=== PATIENT | male | born 1975 | race Native Hawaiian/Other Pacific Islander ===

== ENCOUNTER 2016-08-30 01:11 | Emergency (ER) | payer OTHER ==
[~2016-08-30] VITALS: Ht 172.7 cm; Wt 91.2 kg
[~2016-08-30 01:11] MED LIST: LEVEMIR FL100 UNIT/M SC; LISI10TA11 PO; MELATONIN3 M1 PO; METF500T PO
[2016-08-30] MEDS ORDERED: TRAZ50TA36 PO (01:45)
[2016-08-30] MEDS ORDERED: GABA100C2 PO (01:45)
[2016-08-30 01:52] LABS: PLATELET COUNT 200 K/uL (142-355)
[2016-08-30 02:01] LABS: POTASSIUM 3.6 mmol/L (3.6-5.2); SODIUM 135 mmol/L (136-145)
[2016-08-30 02:21] LABS: PARTIAL THROMBOPLASTIN TIME 20.7 SECONDS (24.5-33.6)
[2016-08-30 02:40] VITALS: BP 113/60; TEMP 98.9
== END 2016-08-30 02:43 | disposition home or self-care (01) ==
LOC: ED 01:11
DX: R07.89 Other chest pain (principal); E11.65 Type 2 diabetes mellitus with hyperglycemia; R00.0 Tachycardia, unspecified; I44.4 Left anterior fascicular block
CPT/HCPCS: 36415; 80053; 80307; 81000; 82550; 83036; 84484; 85027; 85610; 85730; 86318; 93005; 99283; G0479

== ENCOUNTER 2016-09-01 18:10 | Inpatient (IN) | payer OTHER ==
[~2016-09-01] VITALS: Ht 172.7 cm; Wt 89.6 kg
[~2016-09-01 18:10] MED LIST changes: +GABA100C2 PO; +TRAZ50TA36 PO
[2016-09-01 18:30] VITALS: BP 133/89; TEMP 98.8
[2016-09-01 20:37] LABS: PLATELET COUNT 121 K/uL (142-355)
[2016-09-01 20:42] LABS: POTASSIUM 3.9 mmol/L (3.6-5.2); SODIUM 124 mmol/L (136-145)
[2016-09-02 02:37] VITALS: BP 117/76; TEMP 98.4; Ht 172.7 cm; Wt 89.6 kg
[2016-09-02 04:00] VITALS: BP 115/78; TEMP 98.3
[2016-09-02 05:38] LABS: PLATELET COUNT 111 K/uL (142-355)
[2016-09-02 05:55] LABS: POTASSIUM 3.7 mmol/L (3.6-5.2); SODIUM 126 mmol/L (136-145)
[2016-09-02 08:00] VITALS: BP 95/58; TEMP 98.7
[2016-09-02 12:00] VITALS: BP 135/92; TEMP 98.5
[2016-09-02 16:00] VITALS: BP 109/69; TEMP 98
[2016-09-02 20:19] VITALS: BP 99/64; TEMP 98.1
[2016-09-03] VITALS: BP 94/65; TEMP 97.6
[2016-09-03 04:00] VITALS: BP 97/72; TEMP 98
[2016-09-03 06:40] LABS: PLATELET COUNT 123 K/uL (142-355)
[2016-09-03 06:57] LABS: POTASSIUM 3.8 mmol/L (3.6-5.2); SODIUM 135 mmol/L (136-145)
[2016-09-03 08:00] VITALS: BP 105/69; TEMP 97.8
[2016-09-03 12:00] VITALS: BP 123/63; TEMP 97.8
[2016-09-03 16:00] VITALS: BP 143/93; TEMP 98
[2016-09-03 20:00] VITALS: BP 144/93; TEMP 98.4
[2016-09-04] VITALS: BP 114/75; TEMP 97.3
[2016-09-04 04:00] VITALS: BP 117/78; TEMP 98.2
[2016-09-04 08:00] VITALS: BP 132/81; TEMP 98.1
[2016-09-04 12:00] VITALS: BP 143/93; TEMP 98.2
[2016-09-04 16:00] VITALS: BP 139/84; TEMP 98.1
[2016-09-04 20:00] VITALS: BP 148/87; TEMP 98.4
[2016-09-05] VITALS: BP 116/71; TEMP 98
[2016-09-05 04:00] VITALS: BP 124/80; TEMP 98.1
[2016-09-05 08:00] VITALS: BP 144/87; TEMP 97.8
[2016-09-05 09:08] LABS: PLATELET COUNT 181 K/uL (142-355)
[2016-09-05 10:16] LABS: POTASSIUM 3.7 mmol/L (3.6-5.2); SODIUM 135 mmol/L (136-145)
[2016-09-05 11:31] VITALS: BP 140/84; TEMP 97.8
[2016-09-05 16:00] VITALS: BP 142/85; TEMP 98
[2016-09-05 20:00] VITALS: BP 145/83; TEMP 98
[2016-09-06] VITALS: BP 149/90; TEMP 97.4
[2016-09-06 02:23] LABS: PLATELET COUNT 202 K/uL (142-355)
[2016-09-06 02:44] LABS: POTASSIUM 3.4 mmol/L (3.6-5.2); SODIUM 138 mmol/L (136-145)
[2016-09-06 04:00] VITALS: BP 137/77; TEMP 97.4
[2016-09-06 08:00] VITALS: BP 177/99; TEMP 98.3
[2016-09-06 12:00] VITALS: BP 144/79; TEMP 98.1
[2016-09-06 16:00] VITALS: BP 161/89; TEMP 98.3
[2016-09-06 20:00] VITALS: BP 155/86; TEMP 99.2
[2016-09-07 00:17] VITALS: BP 147/82; TEMP 98.8
[2016-09-07 04:00] VITALS: BP 145/81; TEMP 98.9
[2016-09-07 07:51] VITALS: BP 183/67; TEMP 98.5
[2016-09-07 12:00] VITALS: BP 165/95; TEMP 98.7
[2016-09-07 16:00] VITALS: BP 163/89; TEMP 98.4
== END 2016-09-07 18:40 | disposition home or self-care (01) | DRG 623 ==
LOC: ED 18:10 → MED/SURG 09-02 00:45
PROVIDERS: Emergency Medicine; ADMIT Emergency Medicine
PROC: 0HBMXZZ Excision of Right Foot Skin, External Approach (ICD-10-PCS; principal; 2016-09-02)
PROC: 02HV33Z Insertion of Infusion Device into Superior Vena Cava, Percutaneous Approach (ICD-10-PCS; 2016-09-07)
DX: E11.621 Type 2 diabetes mellitus with foot ulcer (principal); E87.1 Hypo-osmolality and hyponatremia; E11.65 Type 2 diabetes mellitus with hyperglycemia; Z79.4 Long term (current) use of insulin; R31.9 Hematuria, unspecified; R10.84 Generalized abdominal pain; R11.2 Nausea with vomiting, unspecified; L08.89 Other specified local infections of the skin and subcutaneous tissue; B95.62 Methicillin resistant Staphylococcus aureus infection as the cause of diseases classified elsewhere; B95.1 Streptococcus, group B, as the cause of diseases classified elsewhere; R06.09 Other forms of dyspnea
CPT/HCPCS: 36415; 36571; 80053; 80202; 80307; 81000; 82150; 82550; 82805; 82948; 83036; 83690; 83735; 84484; 85007; 85027; 85379; 85610; 85651; 85730; 86140; 86318; 87070; 87077; 87086; 87088; 87185; 87186; 87205; 93005; 94760; 96361; 96365; 96366; 96367; 96372; 96374; 96375; 99283; 99284; C1751; G0479; J1200; J1644; J1650; J1815; J1885; J1956; J2270; J2360; J2405; J3370; Q9963

== ENCOUNTER 2016-09-08 20:45 | Outpatient (CLI) | payer OTHER | END 2016-09-08 23:00 | disposition home or self-care (01) | LOC: INF 20:45 | DX: L08.89 Other specified local infections of the skin and subcutaneous tissue (principal); B95.7 Other staphylococcus as the cause of diseases classified elsewhere | CPT/HCPCS: 96365; 96375; J1642; J1956 ==

== ENCOUNTER 2016-09-09 19:35 | Outpatient (CLI) | payer OTHER | END 2016-09-09 21:31 | disposition home or self-care (01) | LOC: INF 19:35 | DX: L08.89 Other specified local infections of the skin and subcutaneous tissue (principal); B95.7 Other staphylococcus as the cause of diseases classified elsewhere | CPT/HCPCS: 96365; 96366; 96375; J1642 ==

== ENCOUNTER 2016-09-10 17:03 | Outpatient (CLI) | payer OTHER | END 2016-09-10 19:00 | disposition home or self-care (01) | LOC: INF 17:03 | DX: L08.89 Other specified local infections of the skin and subcutaneous tissue (principal); B95.7 Other staphylococcus as the cause of diseases classified elsewhere | CPT/HCPCS: 96365; 96366; 96375; J1956 ==

== ENCOUNTER → 2016-09-12 18:59 | Outpatient (CLI) | payer OTHER | END | disposition home or self-care (01) | LOC: INF 18:00 | DX: L08.89 Other specified local infections of the skin and subcutaneous tissue (principal); B95.7 Other staphylococcus as the cause of diseases classified elsewhere | CPT/HCPCS: 96365; 96366; J1956 ==

== ENCOUNTER 2016-09-13 19:20 | Outpatient (CLI) | payer OTHER | END 2016-09-13 21:59 | disposition home or self-care (01) | LOC: INF 19:20 | DX: L08.89 Other specified local infections of the skin and subcutaneous tissue (principal) | CPT/HCPCS: 96365; 96366; 96375; J1642; J1956 ==

== ENCOUNTER 2016-09-14 18:36 | Outpatient (CLI) | payer OTHER | END 2016-09-14 19:09 | disposition home or self-care (01) | LOC: INF 18:36 | DX: L08.89 Other specified local infections of the skin and subcutaneous tissue (principal) | CPT/HCPCS: 96365; 96366; J1956 ==

== ENCOUNTER 2016-09-15 19:42 | Outpatient (CLI) | payer OTHER ==
[2016-09-15 20:59] LABS: PLATELET COUNT 335 K/uL (142-355)
[2016-09-15 21:11] LABS: POTASSIUM 4.1 mmol/L (3.6-5.2); SODIUM 131 mmol/L (136-145)
== END 2016-09-15 22:35 ==
LOC: INF 19:42
PROVIDERS: Emergency Medicine
DX: L08.89 Other specified local infections of the skin and subcutaneous tissue (principal); E11.621 Type 2 diabetes mellitus with foot ulcer
CPT/HCPCS: 36591; 80048; 85027; 96365; 96366; J1956

== ENCOUNTER 2016-09-21 07:50 | Outpatient (CLI) | payer OTHER ==
[2016-09-21 10:00] VITALS: BP 122/89; TEMP 97.9
== END 2016-09-21 19:09 | disposition home or self-care (01) ==
LOC: INF 07:50 → MRI 07:50 → INF 19:09
PROC: 05PYX3Z Removal of Infusion Device from Upper Vein, External Approach (ICD-10-PCS; principal; 2016-09-21)
DX: L08.89 Other specified local infections of the skin and subcutaneous tissue (principal)
CPT/HCPCS: 87070; A9576

== ENCOUNTER 2016-11-01 10:25 | Outpatient (CLI) | payer OTHER | END 2016-11-01 12:00 | disposition home or self-care (01) | LOC: RAD 10:25 | DX: E11.49 Type 2 diabetes mellitus with other diabetic neurological complication (principal) ==

== ENCOUNTER 2016-12-06 15:45 | Outpatient (CLI) | payer OTHER | END 2016-12-06 19:39 | disposition home or self-care (01) | LOC: RAD 15:45 | DX: M79.671 Pain in right foot (principal) ==

== ENCOUNTER 2016-12-16 07:41 | Day surgery (SDC) | payer OTHER | END 2016-12-16 10:49 | disposition home or self-care (01) | LOC: OR 07:41 | PROC: 0JBQ0ZZ Excision of Right Foot Subcutaneous Tissue and Fascia, Open Approach (ICD-10-PCS; principal; 2016-12-16) | DX: E11.621 Type 2 diabetes mellitus with foot ulcer (principal) | CPT/HCPCS: 82947; J0690; J2001; J2250; J2704; J3010; J3490 ==

== ENCOUNTER 2017-03-01 13:14 | Outpatient (CLI) | payer OTHER | END 2017-03-01 21:18 | disposition home or self-care (01) | LOC: RAD 13:14 | DX: M79.671 Pain in right foot (principal) ==

== ENCOUNTER 2017-06-15 19:57 | Outpatient (CLI) | payer OTHER | END 2017-06-15 22:00 | disposition home or self-care (01) | LOC: INF 19:57 | DX: M86.171 Other acute osteomyelitis, right ankle and foot (principal) | CPT/HCPCS: 96365; 96367; J0744 ==

== ENCOUNTER 2017-06-16 08:42 | Outpatient (CLI) | payer OTHER ==
[~2017-06-16] VITALS: Ht 172.7 cm; Wt 43.2 kg
== END 2017-06-16 21:49 | disposition home or self-care (01) ==
LOC: INF 08:42
DX: M86.171 Other acute osteomyelitis, right ankle and foot (principal)
CPT/HCPCS: 96365; 96366; 96367; 96375; 96376; J0744; J1642

== ENCOUNTER 2017-06-17 09:15 | Outpatient (CLI) | payer OTHER | END 2017-06-17 23:48 | disposition home or self-care (01) | LOC: INF 09:15 | DX: M86.8X7 Other osteomyelitis, ankle and foot (principal); E11.621 Type 2 diabetes mellitus with foot ulcer | CPT/HCPCS: 96365; 96366; 96367; 96375; 96376; J0744; J1642 ==

== ENCOUNTER 2017-06-18 09:14 | Outpatient (CLI) | payer OTHER | END 2017-06-18 13:00 | disposition home or self-care (01) | LOC: INF 09:14 | DX: M86.8X7 Other osteomyelitis, ankle and foot (principal); E11.621 Type 2 diabetes mellitus with foot ulcer | CPT/HCPCS: 96365; 96367; 96375 ==

== ENCOUNTER 2017-06-19 19:33 | Outpatient (CLI) | payer OTHER | END 2017-06-19 21:17 | disposition home or self-care (01) | LOC: INF 19:33 | DX: M86.8X7 Other osteomyelitis, ankle and foot (principal) | CPT/HCPCS: 96365; 96367; J0744; J1642 ==

== ENCOUNTER 2017-06-20 19:28 | Outpatient (CLI) | payer OTHER ==
[2017-06-21 04:09] LABS: PLATELET COUNT 301 K/uL (142-355)
[2017-06-21 04:17] LABS: POTASSIUM 3.8 mmol/L (3.6-5.2)
== END 2017-06-20 23:05 | disposition home or self-care (01) ==
LOC: INF 19:28
PROVIDERS: Podiatrist
DX: M86.8X7 Other osteomyelitis, ankle and foot (principal)
CPT/HCPCS: 36591; 80053; 85027; 96365; 96367; J0744

== ENCOUNTER 2017-06-21 20:25 | Outpatient (CLI) | payer OTHER ==
[~2017-06-21] VITALS: Ht 172.7 cm; Wt 95.3 kg
== END 2017-06-22 04:48 | disposition home or self-care (01) ==
LOC: INF 20:25
DX: M86.8X7 Other osteomyelitis, ankle and foot (principal)
CPT/HCPCS: 96365; J1642; J3370

== ENCOUNTER 2017-07-10 15:24 | Outpatient (CLI) | payer OTHER ==
[2017-07-10 15:30] LABS: PLATELET COUNT 202 K/uL (142-355)
[2017-07-10 15:41] LABS: POTASSIUM 4.3 mmol/L (3.6-5.2)
== END 2017-07-10 20:09 | disposition home or self-care (01) ==
LOC: LAB 15:24
PROVIDERS: Internal Medicine Infectious Disease
DX: M86.171 Other acute osteomyelitis, right ankle and foot (principal); Z48.817 Encounter for surgical aftercare following surgery on the skin and subcutaneous tissue; Z79.4 Long term (current) use of insulin; Z45.2 Encounter for adjustment and management of vascular access device
CPT/HCPCS: 80053; 85027; 85651; 86140

== ENCOUNTER 2017-07-17 10:43 | Outpatient (CLI) | payer OTHER ==
[2017-07-17 11:11] LABS: PLATELET COUNT 228 K/uL (142-355)
[2017-07-17 11:55] LABS: POTASSIUM 4.3 mmol/L (3.6-5.2)
== END 2017-07-17 20:07 | disposition home or self-care (01) ==
LOC: LAB 10:43
PROVIDERS: Internal Medicine Infectious Disease
DX: Z48.817 Encounter for surgical aftercare following surgery on the skin and subcutaneous tissue (principal); M86.171 Other acute osteomyelitis, right ankle and foot; Z79.4 Long term (current) use of insulin; Z45.2 Encounter for adjustment and management of vascular access device
CPT/HCPCS: 80053; 85027; 85651; 86140

== ENCOUNTER 2017-07-24 11:45 | Outpatient (CLI) | payer OTHER ==
[2017-07-24 12:20] LABS: PLATELET COUNT 210 K/uL (142-355)
== END 2017-07-24 19:21 | disposition home or self-care (01) ==
LOC: LAB 11:45
PROVIDERS: Internal Medicine Infectious Disease
DX: M86.171 Other acute osteomyelitis, right ankle and foot (principal); Z79.4 Long term (current) use of insulin; Z48.817 Encounter for surgical aftercare following surgery on the skin and subcutaneous tissue
CPT/HCPCS: 80053; 85027; 85651; 86140

== ENCOUNTER 2017-07-31 10:53 | Outpatient (CLI) | payer OTHER ==
[2017-07-31 11:01] LABS: PLATELET COUNT 211 K/uL (142-355)
[2017-07-31 11:07] LABS: POTASSIUM 4.2 mmol/L (3.6-5.2)
== END 2017-07-31 21:32 | disposition home or self-care (01) ==
LOC: LAB 10:53
PROVIDERS: Internal Medicine Infectious Disease
DX: M86.171 Other acute osteomyelitis, right ankle and foot (principal); Z48.817 Encounter for surgical aftercare following surgery on the skin and subcutaneous tissue
CPT/HCPCS: 80053; 85027; 85651; 86140

== ENCOUNTER 2017-08-07 13:39 | Outpatient (CLI) | payer OTHER ==
[2017-08-07 15:21] LABS: POTASSIUM 4.1 mmol/L (3.6-5.2)
[2017-08-07 16:05] LABS: PLATELET COUNT 213 K/uL (142-355)
== END 2017-08-07 19:27 | disposition home or self-care (01) ==
LOC: LAB 13:39
PROVIDERS: Internal Medicine Infectious Disease
DX: M86.171 Other acute osteomyelitis, right ankle and foot (principal)
CPT/HCPCS: 80053; 85027; 85651; 86140

== ENCOUNTER 2017-08-14 10:15 | Outpatient (CLI) | payer OTHER ==
[2017-08-14 10:52] LABS: PLATELET COUNT 244 K/uL (142-355)
[2017-08-14 11:00] LABS: POTASSIUM 4.1 mmol/L (3.6-5.2)
== END 2017-08-14 21:47 | disposition home or self-care (01) ==
LOC: LAB 10:15
PROVIDERS: Internal Medicine Infectious Disease
DX: M86.171 Other acute osteomyelitis, right ankle and foot (principal)
CPT/HCPCS: 80053; 85027; 85651; 86140

== ENCOUNTER 2017-10-09 16:18 | Outpatient (CLI) | payer OTHER ==
[2017-10-09 16:37] LABS: PLATELET COUNT 297 K/uL (142-355)
[2017-10-09 16:46] LABS: POTASSIUM 4.2 mmol/L (3.6-5.2)
== END 2017-10-09 20:27 | disposition home or self-care (01) ==
LOC: LABW 16:18
PROVIDERS: Podiatrist
DX: L03.115 Cellulitis of right lower limb (principal)
CPT/HCPCS: 36415; 80053; 85027; 85651; 86140

== ENCOUNTER 2017-11-03 14:02 | Outpatient (CLI) | payer OTHER | END 2017-11-03 23:44 | disposition home or self-care (01) | LOC: RAD 14:02 | DX: Z01.818 Encounter for other preprocedural examination (principal) ==

== ENCOUNTER 2017-11-21 11:51 | Outpatient (CLI) | payer OTHER ==
[2017-11-21 12:09] LABS: PLATELET COUNT 286 K/uL (142-355)
[2017-11-21 12:53] LABS: POTASSIUM 3.7 mmol/L (3.6-5.2)
== END 2017-11-21 23:15 | disposition home or self-care (01) ==
LOC: LAB 11:51
PROVIDERS: Podiatrist
DX: E11.65 Type 2 diabetes mellitus with hyperglycemia (principal); Z48.817 Encounter for surgical aftercare following surgery on the skin and subcutaneous tissue; M86.171 Other acute osteomyelitis, right ankle and foot; Z45.2 Encounter for adjustment and management of vascular access device
CPT/HCPCS: 36415; 80053; 85027; 85651; 86140

== ENCOUNTER 2017-11-28 11:23 | Outpatient (CLI) | payer OTHER ==
[2017-11-28 11:46] LABS: PLATELET COUNT 278 K/uL (142-355)
[2017-11-28 12:05] LABS: POTASSIUM 4.3 mmol/L (3.6-5.2)
== END 2017-11-28 19:08 | disposition home or self-care (01) ==
LOC: LAB 11:23
PROVIDERS: Podiatrist
DX: M86.671 Other chronic osteomyelitis, right ankle and foot (principal); E11.621 Type 2 diabetes mellitus with foot ulcer; B95.61 Methicillin susceptible Staphylococcus aureus infection as the cause of diseases classified elsewhere
CPT/HCPCS: 80053; 85027; 85651; 86140

== ENCOUNTER 2017-12-05 11:19 | Outpatient (CLI) | payer OTHER ==
[2017-12-05 11:53] LABS: PLATELET COUNT 211 K/uL (142-355)
[2017-12-05 13:02] LABS: POTASSIUM 3.9 mmol/L (3.6-5.2)
== END 2017-12-05 23:47 | disposition home or self-care (01) ==
LOC: LAB 11:19
PROVIDERS: Podiatrist
DX: Z98.890 Other specified postprocedural states (principal); M86.671 Other chronic osteomyelitis, right ankle and foot; E11.621 Type 2 diabetes mellitus with foot ulcer; B95.61 Methicillin susceptible Staphylococcus aureus infection as the cause of diseases classified elsewhere
CPT/HCPCS: 80053; 82550; 85027; 85651; 86140

== ENCOUNTER 2017-12-12 11:50 | Outpatient (CLI) | payer OTHER ==
[2017-12-12 12:27] LABS: PLATELET COUNT 214 K/uL (142-355)
[2017-12-12 12:32] LABS: POTASSIUM 4.2 mmol/L (3.6-5.2)
== END 2017-12-12 19:33 | disposition home or self-care (01) ==
LOC: LAB 11:50
PROVIDERS: Podiatrist
DX: M86.10 Other acute osteomyelitis, unspecified site (principal)
CPT/HCPCS: 36415; 80053; 82550; 85027; 85651; 86140

== ENCOUNTER 2017-12-19 10:06 | Outpatient (CLI) | payer OTHER ==
[2017-12-19 10:24] LABS: PLATELET COUNT 169 K/uL (142-355)
[2017-12-19 10:31] LABS: POTASSIUM 4.2 mmol/L (3.6-5.2)
== END 2017-12-19 23:40 | disposition home or self-care (01) ==
LOC: LAB 10:06
PROVIDERS: Podiatrist
DX: M86.171 Other acute osteomyelitis, right ankle and foot (principal); Z79.2 Long term (current) use of antibiotics; Z51.81 Encounter for therapeutic drug level monitoring
CPT/HCPCS: 80053; 82550; 85027; 85651; 86140

== ENCOUNTER 2017-12-26 13:14 | Outpatient (CLI) | payer OTHER ==
[2017-12-26 13:53] LABS: POTASSIUM 4.1 mmol/L (3.6-5.2)
[2017-12-26 14:22] LABS: PLATELET COUNT 209 K/uL (142-355)
== END 2017-12-26 19:55 | disposition home or self-care (01) ==
LOC: LAB 13:14
PROVIDERS: Podiatrist
DX: M86.671 Other chronic osteomyelitis, right ankle and foot (principal); E11.621 Type 2 diabetes mellitus with foot ulcer; B95.61 Methicillin susceptible Staphylococcus aureus infection as the cause of diseases classified elsewhere
CPT/HCPCS: 80053; 82550; 85027; 85651; 86140

== ENCOUNTER 2018-01-11 14:59 | Outpatient (CLI) | payer OTHER | END 2018-01-11 19:33 | disposition home or self-care (01) | LOC: INF 14:59 | DX: M86.671 Other chronic osteomyelitis, right ankle and foot (principal) ==

== ENCOUNTER 2018-11-27 08:36 | Outpatient (CLI) | payer OTHER ==
[2018-11-27 09:06] LABS: PLATELET COUNT 189 K/uL (142-355)
[2018-11-27 09:12] LABS: POTASSIUM 4.5 mmol/L (3.6-5.2)
== END 2018-11-27 19:56 | disposition home or self-care (01) ==
LOC: LABW 08:36
PROVIDERS: Podiatrist
DX: Z01.810 Encounter for preprocedural cardiovascular examination (principal); Z01.811 Encounter for preprocedural respiratory examination; Z01.812 Encounter for preprocedural laboratory examination
CPT/HCPCS: 36415; 80053; 83036; 85027; 93005

== ENCOUNTER 2018-12-20 10:08 | Outpatient (CLI) | payer OTHER ==
[2018-12-20 10:43] LABS: POTASSIUM 4.4 mmol/L (3.6-5.2)
== END 2018-12-20 20:15 | disposition home or self-care (01) ==
LOC: LABW 10:08
PROVIDERS: Internal Medicine Endocrinology, Diabetes & Metabolism
DX: E11.65 Type 2 diabetes mellitus with hyperglycemia (principal); E78.00 Pure hypercholesterolemia, unspecified; I10 Essential (primary) hypertension; E66.9 Obesity, unspecified; E78.1 Pure hyperglyceridemia; E87.1 Hypo-osmolality and hyponatremia
CPT/HCPCS: 36415; 80053; 82043; 82570; 84439; 84443; 84480

== ENCOUNTER 2019-01-06 20:03 | Observation (INO) | payer OTHER ==
[~2019-01-06] VITALS: Ht 172.7 cm; Wt 96.3 kg
[2019-01-06] VITALS (12 sets, daily range): BP systolic 101–157; BP diastolic 61–101; TEMP 97.9–98.1
[2019-01-06 20:31] LABS: PLATELET COUNT 226 K/uL (142-355)
[2019-01-06 20:45] LABS: POTASSIUM 4.6 mmol/L (3.6-5.2); SODIUM 131 mmol/L (136-145)
[2019-01-06 20:57] LABS: PARTIAL THROMBOPLASTIN TIME 23.9 SECONDS (24.5-33.6)
[2019-01-06] MEDS ORDERED: NOVOLOG FL100 UNIT/M SC (23:59)
[2019-01-06] MEDS ORDERED: OZEMPIC2 MG/1.5 M SC (23:59)
[2019-01-06] MEDS ORDERED: TRESIBA100 UNIT/M SC (23:59)
[2019-01-07 00:16] VITALS: BP 130/88; TEMP 98.6; Ht 172.7 cm; Wt 96.3 kg
[2019-01-07 03:50] VITALS: BP 94/47; TEMP 98.1
[2019-01-07 08:00] VITALS: BP 101/47; TEMP 97.8
[2019-01-07 12:00] VITALS: BP 116/68; TEMP 98.3
== END 2019-01-07 16:35 | disposition home or self-care (01) ==
LOC: ED 20:03 → MED/SURG 21:49
PROVIDERS: Hospitalist; ADMIT Family Medicine
DX: R07.89 Other chest pain (principal); R20.0 Anesthesia of skin; E11.65 Type 2 diabetes mellitus with hyperglycemia; E87.1 Hypo-osmolality and hyponatremia; Z91.14 Patient's other noncompliance with medication regimen; Z91.19 Patient's noncompliance with other medical treatment and regimen; E86.0 Dehydration; I10 Essential (primary) hypertension
CPT/HCPCS: 36415; 80053; 81002; 82550; 83880; 84484; 85027; 85610; 85730; 93005; 96374; 99220; 99284; G0378; J1815; J2405

== ENCOUNTER 2019-02-18 12:55 | Outpatient (CLI) | payer OTHER ==
[~2019-02-18 12:55] MED LIST changes: +NOVOLOG FL100 UNIT/M SC; +OZEMPIC2 MG/1.5 M SC; +TRESIBA100 UNIT/M SC
== END 2019-02-18 13:02 | disposition short-term general hospital (02) ==
LOC: AMB 12:55
DX: R10.31 Right lower quadrant pain (principal); R11.2 Nausea with vomiting, unspecified; R19.7 Diarrhea, unspecified
CPT/HCPCS: A0425; A0427

== ENCOUNTER 2019-02-18 13:04 | Emergency (ER) | payer OTHER ==
[~2019-02-18] VITALS: Ht 172.7 cm; Wt 96.6 kg
[2019-02-18 13:04] VITALS: TEMP 97.9
[2019-02-18 13:57] LABS: POTASSIUM 4.2 mmol/L (3.6-5.2)
[2019-02-18 13:58] LABS: PLATELET COUNT 239 K/uL (142-355)
[2019-02-18 17:30] VITALS: BP 150/88
== END 2019-02-18 17:30 | disposition home or self-care (01) ==
LOC: ED 13:09
PROVIDERS: Student in an Organized Health Care Education/Training Program
DX: R10.31 Right lower quadrant pain (principal)
CPT/HCPCS: 80053; 81000; 83690; 83735; 85027; 96360; 96375; 99284; J1885; J2405

== ENCOUNTER 2019-05-14 09:31 | Outpatient (CLI) | payer OTHER | END 2019-05-14 19:04 | disposition home or self-care (01) | LOC: LAB 09:31 | DX: I10 Essential (primary) hypertension (principal); E11.621 Type 2 diabetes mellitus with foot ulcer ==

== ENCOUNTER 2019-05-17 16:50 | Outpatient (CLI) | payer OTHER ==
[2019-05-17 17:20] LABS: POTASSIUM 3.9 mmol/L (3.6-5.2)
[2019-05-17 17:22] LABS: PLATELET COUNT 311 K/uL (142-355)
== END 2019-05-17 22:41 | disposition home or self-care (01) ==
LOC: LABW 16:50
PROVIDERS: Specialist
DX: Z01.810 Encounter for preprocedural cardiovascular examination (principal); R07.2 Precordial pain; R93.1 Abnormal findings on diagnostic imaging of heart and coronary circulation; R35.8 Other polyuria; E11.9 Type 2 diabetes mellitus without complications
CPT/HCPCS: 36415; 80053; 85027

== ENCOUNTER 2019-05-24 07:49 | Outpatient (CLI) | payer OTHER ==
[2019-05-24 07:58] VITALS: BP 152/98; TEMP 97.8
[2019-05-24 09:29] LABS: PLATELET COUNT 285 K/uL (142-355)
[2019-05-24 09:33] LABS: POTASSIUM 3.9 mmol/L (3.6-5.2)
== END 2019-05-24 19:28 | disposition home or self-care (01) ==
LOC: INF 07:49
PROVIDERS: Internal Medicine Infectious Disease
DX: Z43.8 Encounter for attention to other artificial openings (principal); Z48.01 Encounter for change or removal of surgical wound dressing
CPT/HCPCS: 36591; 80048; 85027; 86140; 99211

== ENCOUNTER 2019-06-03 13:17 | Outpatient (CLI) | payer OTHER ==
[2019-06-03 13:25] VITALS: BP 128/76; TEMP 98.2
[2019-06-03 14:39] LABS: PLATELET COUNT 246 K/uL (142-355)
[2019-06-03 14:47] LABS: POTASSIUM 4.3 mmol/L (3.6-5.2)
== END 2019-06-03 13:55 | disposition home or self-care (01) ==
LOC: INF 13:17
PROVIDERS: Internal Medicine Infectious Disease
DX: Z48.01 Encounter for change or removal of surgical wound dressing (principal)
CPT/HCPCS: 36591; 80048; 85027; 86140; 99211

== ENCOUNTER 2019-06-10 13:01 | Outpatient (CLI) | payer OTHER ==
[2019-06-10 13:42] LABS: PLATELET COUNT 267 K/uL (142-355)
[2019-06-10 13:54] LABS: POTASSIUM 4.3 mmol/L (3.6-5.2)
== END 2019-06-10 20:13 | disposition home or self-care (01) ==
LOC: INF 13:01
PROVIDERS: Internal Medicine Infectious Disease
DX: Z79.2 Long term (current) use of antibiotics (principal)
CPT/HCPCS: 36591; 80048; 85027; 86140; 99211

== ENCOUNTER 2019-06-17 08:54 | Outpatient (CLI) | payer OTHER ==
[2019-06-17 09:00] VITALS: BP 157/97; TEMP 98.4
[2019-06-17 09:39] LABS: POTASSIUM 4.1 mmol/L (3.6-5.2)
[2019-06-17 09:52] LABS: PLATELET COUNT 243 K/uL (142-355)
== END 2019-06-17 09:40 | disposition home or self-care (01) ==
LOC: INF 08:54
PROVIDERS: Internal Medicine Infectious Disease
DX: Z79.2 Long term (current) use of antibiotics (principal)
CPT/HCPCS: 36591; 80048; 85027; 86140; 99211

== ENCOUNTER 2019-06-24 08:43 | Outpatient (CLI) | payer OTHER ==
[2019-06-24 08:55] VITALS: BP 155/90; TEMP 98.7
== END 2019-06-24 09:10 | disposition home or self-care (01) ==
LOC: INF 08:43
DX: L97.413 Non-pressure chronic ulcer of right heel and midfoot with necrosis of muscle (principal); B95.2 Enterococcus as the cause of diseases classified elsewhere; A49.01 Methicillin susceptible Staphylococcus aureus infection, unspecified site
CPT/HCPCS: 87070; 99211

== ENCOUNTER 2019-07-19 12:10 | Outpatient (CLI) | payer OTHER | END 2019-07-19 19:12 | disposition home or self-care (01) | LOC: MRI 12:10 | DX: I96 Gangrene, not elsewhere classified (principal) ==

== ENCOUNTER 2019-12-28 09:36 | Emergency (ER) | payer OTHER ==
[~2019-12-28] VITALS: Ht 172.7 cm; Wt 98.4 kg
[2019-12-28 10:31] LABS: PLATELET COUNT 215 K/uL (142-355)
[2019-12-28 10:38] LABS: POTASSIUM 3.9 mmol/L (3.6-5.2)
[2019-12-28 13:53] VITALS: BP 136/88; TEMP 98
== END 2019-12-28 13:55 | disposition home or self-care (01) ==
LOC: ED 09:36
PROVIDERS: Emergency Medicine
DX: R10.32 Left lower quadrant pain (principal); E11.9 Type 2 diabetes mellitus without complications; Z79.4 Long term (current) use of insulin
CPT/HCPCS: 36415; 80053; 81000; 82150; 83690; 85027; 96374; 96376; 99284; J1815; J1885; Q9963

== ENCOUNTER 2020-01-22 17:39 | Emergency (ER) | payer OTHER ==
[~2020-01-22] VITALS: Ht 172.7 cm; Wt 96.6 kg
[2020-01-22 17:47] VITALS: BP 160/102; TEMP 98.9
== END 2020-01-22 18:43 | disposition home or self-care (01) ==
LOC: ED 17:39
DX: R10.84 Generalized abdominal pain (principal)
CPT/HCPCS: 99281; J1885

== ENCOUNTER 2020-06-07 13:25 | Emergency (ER) | payer OTHER ==
[~2020-06-07] VITALS: Ht 172.7 cm; Wt 92.1 kg
[2020-06-07 13:28] VITALS: TEMP 98.7
[2020-06-07 16:40] VITALS: BP 183/110
== END 2020-06-07 16:56 | disposition home or self-care (01) ==
LOC: ED 13:25
DX: S60.454A Superficial foreign body of right ring finger, initial encounter (principal)
CPT/HCPCS: 96372; 99283; J0696; J1885

== ENCOUNTER 2020-10-19 08:48 | Outpatient (CLI) | payer OTHER ==
[~2020-10-19 08:48] MED LIST changes: +AMLODIPINE BESYLATE PO; +METO-837 PO; +PANTOPRAZOLE 40MG TA PO
[2020-10-19 09:05] LABS: PLATELET COUNT 227 K/uL (142-355)
[2020-10-19 10:03] LABS: POTASSIUM 4.2 mmol/L (3.6-5.2)
== END 2020-10-19 19:06 | disposition home or self-care (01) ==
LOC: LABW 08:48
PROVIDERS: ATTEND Specialist
DX: Z01.810 Encounter for preprocedural cardiovascular examination (principal); I20.0 Unstable angina
CPT/HCPCS: 36415; 80053; 85027

== ENCOUNTER 2021-01-05 14:41 | Outpatient (CLI) | payer OTHER | END 2021-01-05 21:27 | disposition home or self-care (01) | LOC: RAD 14:41 | PROVIDERS: ATTEND Surgery | DX: S88.111A Complete traumatic amputation at level between knee and ankle, right lower leg, initial encounter (principal) ==

== ENCOUNTER 2021-01-08 07:14 | Outpatient (CLI) | payer OTHER ==
[2021-01-08 07:37] LABS: PLATELET COUNT 252 K/uL (142-355)
[2021-01-08 08:22] LABS: POTASSIUM 4.2 mmol/L (3.6-5.2)
== END 2021-01-08 19:03 | disposition home or self-care (01) ==
LOC: LABW 07:14
PROVIDERS: ATTEND Internal Medicine Nephrology
DX: N18.32 Chronic kidney disease, stage 3b (principal)
CPT/HCPCS: 36415; 80053; 80061; 82306; 82570; 82728; 83036; 83540; 83550; 83970; 84100; 84155; 84439; 84443; 85027

== ENCOUNTER 2021-02-19 07:32 | Outpatient (CLI) | payer OTHER ==
[2021-02-19 08:07] LABS: PLATELET COUNT 287 K/uL (142-355)
[2021-02-19 08:38] LABS: POTASSIUM 3.9 mmol/L (3.6-5.2)
== END 2021-02-19 18:58 | disposition home or self-care (01) ==
LOC: LABW 07:32
PROVIDERS: ATTEND Internal Medicine Nephrology
DX: N18.32 Chronic kidney disease, stage 3b (principal); D53.1 Other megaloblastic anemias, not elsewhere classified; E87.6 Hypokalemia; E83.42 Hypomagnesemia; I10 Essential (primary) hypertension
CPT/HCPCS: 36415; 80053; 82306; 82570; 82728; 83036; 83540; 83550; 83970; 84100; 84155; 84439; 84443; 85027

== ENCOUNTER 2021-05-27 09:21 | Outpatient (CLI) | payer OTHER ==
[2021-05-27 10:11] LABS: PLATELET COUNT 265 K/uL (142-355)
[2021-05-27 10:35] LABS: SODIUM 139 mmol/L (136-145)
== END 2021-05-27 19:13 | disposition home or self-care (01) ==
LOC: LABW 09:21
PROVIDERS: ATTEND Internal Medicine Nephrology
DX: N18.32 Chronic kidney disease, stage 3b (principal)
CPT/HCPCS: 36415; 80053; 80061; 82306; 82570; 82728; 83036; 83540; 83550; 83970; 84100; 84155; 84439; 84443; 85027

== ENCOUNTER 2021-08-05 13:20 | Outpatient (CLI) | payer OTHER ==
[2021-08-05 13:36] LABS: PLATELET COUNT 260 K/uL (142-355)
[2021-08-05 14:19] LABS: POTASSIUM 4.1 mmol/L (3.6-5.2)
== END 2021-08-05 20:43 | disposition home or self-care (01) ==
LOC: LABW 13:20
PROVIDERS: ATTEND Internal Medicine Nephrology
DX: I12.9 Hypertensive chronic kidney disease with stage 1 through stage 4 chronic kidney disease, or unspecified chronic kidney disease (principal); N18.32 Chronic kidney disease, stage 3b; D63.1 Anemia in chronic kidney disease; E87.6 Hypokalemia; E55.9 Vitamin D deficiency, unspecified
CPT/HCPCS: 36415; 80053; 80061; 82306; 84439; 84443; 85027

== ENCOUNTER 2021-08-18 16:47 | Outpatient (CLI) | payer OTHER ==
[2021-08-18 17:14] LABS: POTASSIUM 4.2 mmol/L (3.6-5.2)
== END 2021-08-18 19:02 | disposition home or self-care (01) ==
LOC: LABW 16:47
PROVIDERS: ATTEND Internal Medicine Nephrology
DX: N18.32 Chronic kidney disease, stage 3b (principal)
CPT/HCPCS: 36415; 80053